=== PATIENT | female | born 1975 | race Caucasian/White ===

== ENCOUNTER 2021-06-15 14:36 | Emergency (ER) | payer OTHER ==
[~2021-06-15] VITALS: Ht 170.2 cm; Wt 77.1 kg
[2021-06-15] MEDS ORDERED: LIDOCAINE HCL 1% LOCAL INJ 20 ML VIAL INJ STA (14:58)
[2021-06-15] MEDS ORDERED: TETANUS/DIPHTHERIA TOX ADULT 0.5 ML SYR IM STA (14:58)
[2021-06-15] MEDS ORDERED: MUPIROCIN 2% OINT 22 GM TUBE TOP ONE (15:00)
[2021-06-15] MEDS ORDERED: TETANUS/DIPHTHERIA TOX ADULT 0.5 ML SYR ONE (15:29)
== END 2021-06-15 16:00 | disposition home or self-care (01) ==
LOC: FSED 14:46
DX: S61.011A Laceration without foreign body of right thumb without damage to nail, initial encounter (principal); W45.8XXA Other foreign body or object entering through skin, initial encounter
CPT/HCPCS: 90471; 90714; 99283

== ENCOUNTER 2021-09-01 15:49 | Emergency (ER) | payer OTHER ==
[~2021-09-01] VITALS: Ht 170.2 cm; Wt 80.5 kg
[2021-09-01] MEDS ORDERED: CRESTOR10 MG PO (16:07)
[2021-09-01] MEDS ORDERED: CLARITIN10 MG PO (16:07)
[2021-09-01] MEDS ORDERED: LISINOPRIL10 MG PO (16:07)
[2021-09-01] MEDS ORDERED: TRAZODONE HCL100 MG PO (16:07)
[2021-09-01] MEDS ORDERED: PRILOSEC OTC20 MG (16:07)
[2021-09-01] MEDS ORDERED: KETOROLAC TROMETHAMINE 30 MG/ML VIAL IV STA (16:41)
[2021-09-01] MEDS ORDERED: SODIUM CHLORIDE 0.9% 1000ML 1,000 ML IV SCH (16:45)
[2021-09-01] MEDS ORDERED: CEFTRIAXONE 1 GM in SODIUM CHLORIDE 0.9% 50ML 50 ML IV ONE (16:45)
[2021-09-01] MEDS ORDERED: KETOROLAC TROMETHAMINE 30 MG/ML VIAL ONE (16:58)
[2021-09-01] MEDS ORDERED: SODIUM CHLORIDE 0.9% 1000ML 1,000 ML ONE (16:58)
[2021-09-01] MEDS ORDERED: SODIUM CHLORIDE 0.9% 50ML 50 ML ONE (16:58)
[2021-09-01] MEDS ORDERED: CEFTRIAXONE 1 GM VIAL ONE (16:58)
[2021-09-01] MEDS ORDERED: ONDANSETRON HCL INJ 2MG/ML 2ML 2 MG/ML VIAL ONE (18:19)
[2021-09-01] MEDS ORDERED: Morphine 4mg Syringe 4 MG/ML INJ ONE (18:20)
[2021-09-01] MEDS ORDERED: ONDANSETRON HCL INJ 2MG/ML 2ML 2 MG/ML VIAL IV STA (18:29)
[2021-09-01] MEDS ORDERED: Morphine 4mg Syringe 4 MG/ML INJ IV PRN (18:30)
[2021-09-01 20:35] LABS: INR 0.93; PROTHROMBIN TIME 12.9 seconds (11.9-14.5)
[2021-09-01 20:36] LABS: PARTIAL THROMBOPLASTIN TIME 30.8 seconds (23.8-35.5)
== END 2021-09-01 21:54 | disposition other institution (70) ==
LOC: FSED 15:51
DX: N28.89 Other specified disorders of kidney and ureter (principal); R31.0 Gross hematuria; R10.32 Left lower quadrant pain; I10 Essential (primary) hypertension; E78.5 Hyperlipidemia, unspecified; K21.9 Gastro-esophageal reflux disease without esophagitis; Z20.822 Contact with and (suspected) exposure to COVID-19; F17.210 Nicotine dependence, cigarettes, uncomplicated
CPT/HCPCS: 36415; 74176; 80053; 81003; 85025; 85610; 85730; 87086; 96374; 96375; 99284; J0696; J1885; J2270; J2405; J7030; U0002